=== PATIENT | female | born 2000 | race African-American/Black ===

== ENCOUNTER 2024-04-16 09:50 | Emergency (ER) | payer MEDICAID ==
[2024-04-16 10:08] LABS: BASOPHILS ABSOLUTE AUTO 0.05 K/uL (0.00-0.10); BASOPHILS PERCENT AUTO 0.5 % (0.1-1.3); EOSINOPHILS ABSOLUTE AUTO 0.17 K/uL (0.00-0.40); EOSINOPHILS PERCENT AUTO 1.6 % (0.0-5.4); HEMATOCRIT 35.6 % (34.3-46.0); HEMOGLOBIN 11.8 g/dL (11.2-15.5); IMMATURE GRAN ABSOLUTE AUTO 0.04 K/uL (0.00-0.23); IMMATURE GRAN PERCENT AUTO 0.4 % (0.0-0.7); LYMPHOCYTES ABSOLUTE AUTO 1.64 K/uL (0.8-3.3); LYMPHOCYTES PERCENT AUTO 15.8 % (11.4-47.7); MEAN CORPUSCULAR HEMOGLOBIN 30.6 pg (31.6-35.5); MEAN CORPUSCULAR HGB CONC 33.1 g/dL (31.6-35.5); MEAN CORPUSCULAR VOLUME 92.2 fL (81.4-99.0); MONOCYTES ABSOLUTE AUTO 0.71 K/uL (0.20-0.90); MONOCYTES PERCENT AUTO 6.9 % (3.3-12.6); NEUTROPHILS ABSOLUTE AUTO 7.75 K/uL (1.0-7.6); NEUTROPHILS PERCENT AUTO 74.8 % (40.0-78.1); PLATELET COUNT,PLT 300 K/uL (130-375); RED BLOOD CELL COUNT 3.86 M/uL (3.77-5.24); WHITE BLOOD CELL COUNT,WBC 10.4 K/uL (3.2-11.0)
[2024-04-16 10:09] LABS: BASE EXCESS VENOUS 0.5 mm/L; BICARBONATE,VENOUS 25.3 mmol/L; CARBOXYHEMOGLOBIN 4.2 % (0.0-1.6); METHEMOGLOBIN 1.1 %; O2 SATURATION VENOUS 51.5; OXYHEMOGLOBIN 48.8 %; PCO2 VENOUS 43.7 mm/Hg; PH,VENOUS 7.381 (7.350-7.450); TOTAL HEMOGLOBIN 12.3 g/dL (12.0-16.0)
[2024-04-16 10:10] LABS: PO2 VENOUS 30.1 mm/Hg
[2024-04-16 10:32] LABS: A/G RATIO 1.3 (1.2-2.2); ALANINE AMINOTRANSFERASE,ALT 24 U/L (12-78); ALKALINE PHOSPHATASE 89 U/L (46-116); ANION GAP 8.6 mmol/L (5.0-14.0); ASPARTATE AMNIOTRANSFERASE,AST 21 U/L (15-37); BILIRUBIN TOTAL 0.6 mg/dL (0.2-1.0); BLOOD UREA NITROGEN,BUN 15 mg/dL (7-18); CALCIUM 8.8 mg/dL (8.5-10.1); CARBON DIOXIDE,CO2 26 mmol/L (21-32); CHLORIDE,CL 105 mmol/L (100-108); CREATININE 0.8 mg/dL (0.6-1.0); EST CRCL DRUG DOSING (CG) 111.37 mL/min; ESTIMATED GFR 104 mL/min (>60); GLUCOSE RANDOM 90 mg/dL (74-106); POTASSIUM,K 3.8 mmol/L (3.6-5.2); PROTEIN TOTAL,TP 7.2 g/dL (6.4-8.2); SODIUM,NA 140 mmol/L (140-148)
== END 2024-04-16 11:45 | disposition left against medical advice (07) ==
LOC: JP.ED 09:50
DX: T50.901A Poisoning by unspecified drugs, medicaments and biological substances, accidental (unintentional), initial encounter (principal); F17.210 Nicotine dependence, cigarettes, uncomplicated
CPT/HCPCS: 36415; 80053; 80143; 80179; 80307; 82803; 83605; 85025; 93005; 93010; 99284